=== PATIENT | male | born 1965 | race Caucasian/White ===

== ENCOUNTER 2025-01-20 16:00 | Outpatient (AMB) | payer OTHER, SELFPAY ==
[2025-01-20 15:37] VITALS: BP 146/83; PULSE 69; RESP 17; TEMP 36.3; O2SAT 98; BMI 36.2
--- NOTE | 2025-01-20 15:37 | ACNOTE_ITS ---
Vital Signs 01/20/25 15:37 Height 1.83 m Height Method Stated Weight 121.223 kg Weight Measurement Method Standing Scale BMI 36.2 BP 146/83 H Blood Pressure Source Automatic Cuff Blood Pressure Location Left Upper Arm Position Sitting Respiration 17 Pulse 69 Pulse Source Monitor Temp 97.3 F Temp Source Temporal Artery Scan Pulse Oximetry (%) 98 Oxygen Delivery Method Room Air Allergies/Meds Allergies & Medications Allergies No Known Allergies Allergy (Verified 01/20/25 15:38) Medication Reconciliation infliximab 100 mg intravenous solution (Remicade) IV 01/20/25 [History Confirmed 01/20/25] methotrexate (PF) 12.5 mg/0.4 mL subcutaneous auto-injector 12.5 mg subcut QWEEK 01/20/25 [History Confirmed 01/20/25] MA Intake Visit Data Collection New Patient or Established: New Patient (never been to [facility]) Seen by Clinical Staff ONLY (RN/MA): No Pain Present Currently: Yes Pain scale:: 0 Pain Scale Used: Benoit-Lala/Numerical Volleyball Commentator Required: No PCP or OBGYN visit in last 3 months: No Hx Now: No Do You Feel Safe at Home: Yes Authorities Contacted: N/A Smoking Status Smoking Status: Never smoker Immunization / Flu Flu Vaccine in the Last 12 Months: No Flu Vaccine Exclusion Criteria: No Exclusion Criteria Past Medical History Social History SMOKING STATUS: Smoking status: Never smoker Patient Portal Questionaires Social History Tobacco History Smoking Status: Never smoker Domestic Abuse History Do You Feel Safe at Home: Yes Review of Systems Report any current symptoms Only answer those that you have currently: Past Medical History Past Medical History Have you ever been diagnosed with any of the following: History of Present Illness HPI Narrative Gurdeep Vazquez is a 59-year-old male with a past medical history of psoriatic arthritis (on methotrexate, infliximab, and folic acid) who presents to [facility] for surgical clearance for excision of ganglion cyst, partial excision bone/osteophyte in proximal and distal phalanx of right thumb and open carpal tunnel release with possible flexor tenosynovectomy of right wrist. States that he does not have any other past medical history, including diabetes, hype rtension, or hyperlipidemia and does not take any other medications, including any anticoagulants. Also states that surgeon wants patient off of infliximib for 6 weeks prior to procedure. Last time patient took it was on 12/09, which makes it 6 weeks today. Will order fasting CBC and BMP as well as CXR and EKG for clearance for procedure with plans to follow-up in two weeks. Review of Systems Review of Systems Systems Reviewed: All systems reviewed, normal except as documented Objective/Exam General General Appearance: alert, in no apparent distress, comfortable, cooperative, healthy appearing, well developed and well groomed Head Head exam: atraumatic, normocephalic and normal inspection Resp Respiratory exam: Present normal lung sounds bilaterally Card Cardiovascular exam: Present regular rate, normal rhythm, normal heart sounds, +S1 and +S2 Abdominal Abdominal exam: Present soft; Absent distention, tenderness or guarding Neuro Neurological exam: Present alert, oriented X3, CN II-XII intact, normal gait and motor sensory deficit Psych Psychiatric exam: Present normal affect and normal mood Assessment & Plan Diagnosis / Problem List (1) Preoperative clearance: Status: Acute Assessment & Plan: Gurdeep Vazquez is a 59-year-old male with a past medical history of psoriatic arthritis (on methotrexate, infliximab, and folic acid) who presents to [facility] for surgical clearance for excision of ganglion cyst, partial excision bone/osteophyte in proximal and distal phalanx of right thumb and open carpal tunnel release with possible flexor tenosynovectomy of right wrist. Will order fasting CBC and BMP as well as CXR and EKG for clearance for procedure with plans to follow-up in two weeks. Plan: - Follow-up fasting CBC and BMP - EKG - CXR - Follow-up in clinic within two weeks (2) Establishing care with new doctor, encounter for: Status: Acute Assessment & Plan: Gurdeep Vazquez is a 59-year-old male with a past medical history of psoriatic arthritis (on methotrexate, infliximab, and folic acid) who presents to [facility] for surgical clearance for excision of ganglion cyst, partial excision bone/osteophyte in proximal and distal phalanx of right thumb and open carpal tunnel release with possible flexor tenosynovectomy of right wrist. Will order fasting CBC and BMP for preoperative clearance in addition to establishing care and follow-up in two weeks. Plan: - Follow-up fasting CBC and CMP Orders: Orders XR chest 1V Today Z01.818 - Encounter for other preprocedural examination EKG (RT) Today Z01.818 - Encounter for other preprocedural examination Office Procedures [facility] Level of Care Nursing/Assessment Patient Status: Initial/New Patient Nursing Assessment/Reassessment: Medication Reconciliation, Update PMH in EMR and Vital Signs Coordination of Care: Complex Care and Chronic Disease 1-5, Consent,records obtained, informed consent, Education Simp Pt/Fam, Lab and Imaging orders and Staff clarify orders New Patient Charge New Patient Point Assignment: [id number] New Patient Point Charge: RVDA MASTER CERTIFIED RV TECHNICIAN Level 3 ([id number])
== END 2025-01-20 16:25 | disposition home or self-care (01) ==
LOC: HODAHC 16:00
PROVIDERS: PCP Internal Medicine; Referring Provider Internal Medicine
DX: Z01.818 Encounter for other preprocedural examination (principal)
CPT/HCPCS: 99203; G0463

== ENCOUNTER → 2025-01-20 | Outpatient (CLI) | payer OTHER, SELFPAY ==
--- NOTE | 2025-01-20 16:33 | XR_ITS ---
Examination: PA chest single view TECHNIQUE: Upright PA chest single view Exam date and time: January 20, 2025 1644 hours INDICATIONS: Preop FINDINGS: Normal heart size. Lungs are clear. The osseous structures are intact. IMPRESSION: No active disease
== END | disposition home or self-care (01) ==
LOC: CDIM 16:26
PROVIDERS: PCP Surgery Plastic and Reconstructive Surgery
DX: Z01.818 Encounter for other preprocedural examination (principal)
CPT/HCPCS: 71045

== ENCOUNTER → 2025-02-02 | Outpatient (CLI) | payer OTHER, SELFPAY ==
--- NOTE | 2025-02-02 10:44 | EKG_ITS ---
[facility] Test Date: 2025-02-02 Pat Name: RICH FLORES Department: Room: - Gender: Male Shake Feeder: LI : 1965 Requested By: Pastor Lawson Order Number: [id number] Reading MD: Pastor Lawson Measurements Intervals [place] Rate: 65 P: 32 SD: 167 QRS: 8 QRSD: 97 T: 5 QT: 396 QTc: 412 Interpretive Statements SINUS RHYTHM No previous ECG available for comparison /store/S0/[id number]/ecg/[id number].pdf
== END | disposition home or self-care (01) ==
PROVIDERS: PCP Nurse Practitioner Family
DX: Z01.818 Encounter for other preprocedural examination (principal)
CPT/HCPCS: 93005

== ENCOUNTER 2025-02-10 14:06 | Outpatient (AMB) | payer OTHER, SELFPAY ==
[2025-02-10 13:31] VITALS: BP 125/78; PULSE 56; RESP 18; TEMP 36.9; O2SAT 98; BMI 34.9
--- NOTE | 2025-02-10 13:31 | ACNOTE_ITS ---
Vital Signs 02/10/25 13:31 Height 1.83 m Height Method Stated Weight 117.14 kg Weight Measurement Method Standing Scale BMI 34.9 BP 125/78 Blood Pressure Source Automatic Cuff Blood Pressure Location Left Upper Arm Position Sitting Respiration 18 Pulse 56 L Pulse Source Monitor Temp 98.5 F Temp Source Temporal Artery Scan Pulse Oximetry (%) 98 Oxygen Delivery Method Room Air Allergies/Meds Allergies & Medications Allergies No Known Allergies Allergy (Verified 02/10/25 14:32) Medication Reconciliation infliximab 100 mg intravenous solution (Remicade) IV 01/20/25 [History Confirmed 02/10/25] methotrexate (PF) 12.5 mg/0.4 mL subcutaneous auto-injector 12.5 mg subcut QWEEK 01/20/25 [History Confirmed 02/10/25] MA Intake Visit Data Collection New Patient or Established: Established Patient (seen at [facility] within 3 years) Seen by Clinical Staff ONLY (RN/MA): No Pain Present Currently: No Pain scale:: 0 Comsec Manager Required: No PCP or OBGYN visit in last 3 months: Yes Hx Now: No Do You Feel Safe at Home: Yes Authorities Contacted: N/A Smoking Status Smoking Status: Never smoker Immunization / Flu Flu Vaccine in the Last 12 Months: No Flu Vaccine Exclusion Criteria: No Exclusion Criteria Past Medical History Social History SMOKING STATUS: Smoking status: Never smoker Patient Portal Questionaires Social History Tobacco History Smoking Status: Never smoker Domestic Abuse History Do You Feel Safe at Home: Yes Review of Systems Report any current symptoms Only answer those that you have currently: Past Medical History Past Medical History Have you ever been diagnosed with any of the following: History of Present Illness HPI Narrative Gurdeep Vazquez is a 59-year-old male with a past medical history of psoriatic arthritis (on methotrexate, infliximab, and folic acid) who presents to [facility] for surgical clearance for excision of ganglion cyst, partial excision bone/osteophyte in proximal and distal phalanx of right thumb and open carpal tunnel release with possible flexor tenosynovectomy of right wrist. States that he does not have any other past medical history, including diabetes, hypertension, or hyperlipidemia and does not take any other medications, including any anticoagulants. Also states that surgeon wants patient off of infliximib for 6 weeks prior to procedure. Last time patient took it was on 12/09. 02/11: Patient presents to the [facility] today for follow-up after obtaining CXR, EKG, CBC, and chem panel for clearance. He does not have any complaints at this time. Review of Systems Review of Systems Systems Reviewed: All systems reviewed, normal except as documented Objective/Exam General General Appearance: alert, in no apparent distress, comfortable, cooperative, healthy appearing, well developed and well groomed Head Head exam: atraumatic, normocephalic and normal inspection Resp Respiratory exam: Present normal lung sounds bilaterally Card Cardiovascular exam: Present regular rate, normal rhythm, normal heart sounds, +S1 and +S2 Abdominal Abdominal exam: Present soft; Absent distention, tenderness or guarding Neuro Neurological exam: Present alert, oriented X3, CN II-XII intact, normal gait and motor sensory deficit Psych Psychiatric exam: Present normal affect and normal mood Assessment & Plan Diagnosis / Problem List (1) Psoriatic arthritis of multiple joints: Status: Acute Assessment & Plan: Infliximab on hold. Plan: Surgery planned for excision of ganglion cyst, partial excision bone/osteophyte in proximal and distal phalanx of right thumb and open carpal tunnel release with possible flexor tenosynovectomy of right wrist. (2) Preoperative clearance: Status: Acute Assessment & Plan: Gurdeep Vazquez is a 59-year-old male with a past medical history of psoriatic arthritis (on methotrexate, infliximab, and folic acid) who presents to [facility] for surgical clearance for excision of ganglion cyst, partial excision bone/osteophyte in proximal and distal phalanx of right thumb and open carpal tunnel release with possible flexor tenosynovectomy of right wrist. Plan: - EKG showed NSR - CXR without acute cardiopulmonary disease - CBC and chem panel unremarkable with exception of fasting glucose of 102 - Patient cleared for procedure (3) Establishing care with new doctor, encounter for: Status: Acute Assessment & Plan: Gurdeep Vazquez is a 59-year-old male with a past medical history of psoriatic arthritis (on methotrexate, infliximab, and folic acid) who presents to [facility] for surgical clearance for excision of ganglion cyst, partial excision bone/osteophyte in proximal and distal phalanx of right thumb and open carpal tunnel release with possible flexor tenosynovectomy of right wrist. Plan: - CBC and chem panel obtained for baseline labs - Patient informed that he can follow-up as he needs Office Procedures [facility] Level of Care Nursing/Assessment Patient Status: Established Patient Nursing Assessment/Reassessment: Medication Reconciliation, Update PMH in EMR and Vital Signs Coordination of Care: Complex Care and Chronic Disease 1-5, Consent,records obtained, informed consent, Education Simp Pt/Fam, Results/Orders obtained and Staff clarify orders Established Patient Charge Established Patient Point Assignment: 90 Established Patient Point Charge: EP Level 3 (80-115)
== END 2025-02-10 14:44 | disposition home or self-care (01) ==
LOC: HODAHC 14:06
PROVIDERS: Supervising Provider Internal Medicine
DX: L40.50 Arthropathic psoriasis, unspecified (principal); M67.40 Ganglion, unspecified site; E11.9 Type 2 diabetes mellitus without complications; I10 Essential (primary) hypertension; E78.5 Hyperlipidemia, unspecified
CPT/HCPCS: 99213; G0463